=== PATIENT | female | born 1975 | race Caucasian/White ===

== ENCOUNTER 2020-06-05 11:39 | Emergency (ER) | payer OTHER, SELFPAY ==
--- NOTE | ~2020-06-05 | CT_ITS ---
EXAMINATION: CT chest abdomen pelvis w con DATE: 06/05/2020 15:47 INDICATION: Chest pain. Abdominal pain. TECHNIQUE: Computed tomography (CT) of the chest, abdomen, and pelvis was performed with 100 mL Omnip aque 350 intravenous contrast. Automated exposure control and iterative reconstruction technique were employed. The dose-length product was 812.22 mGy-cm. COMPARISON: None FINDINGS: CHEST CT: The lungs demonstrate mild atelectasis. No pleural effusion. The heart size is normal. No pericardial effusion. There is mild thoracic spondylosis. ABDOMEN/PELVIS CT: The liver, gallbladder, spleen, pancreas, adrenal glands, and kidneys are normal. The left prong of t he intrauterine device pierces the myometrium. There are no dilated loops of bowel. The appendix is n ormal. There are no pathologically enlarged lymph nodes. There is no free intraperitoneal fluid. Ther e is mild lumbar spondylosis. IMPRESSION: 1. Abnormal positioning of the uterine device. The left prong of the intrauterine device pierces the myometrium. Reviewed, dictated and finalized at location B. IMPRESSION: 1. Abnormal positioning of the uterine device. The left prong of the intrauteri ne device pierces the myometrium.
--- NOTE | ~2020-06-05 | XR_ITS ---
EXAMINATION: XR chest 1V portable DATE: 06/05/2020 12:17 INDICATION: Central chest pain TECHNIQUE: frontal view of the chest was obtained. COMPARISON: None FINDINGS: The lungs are clear with no focal airspace opacities, pulmonary edema, pleural effusion or pneumothor ax. The cardiomediastinal silhouette is normal. Visualized bones and soft tissues are unremarkable. IMPRESSION: 1. Normal chest radiograph. Reviewed, dictated and finalized at location A. IMPRESSION: 1. Normal chest radiograph.
[2020-06-05 11:45] VITALS: PULSE 88
[2020-06-05 11:47] VITALS: BP 144/94; PULSE 96; RESP 20; TEMP 36.6; O2SAT 99
--- NOTE | 2020-06-05 11:47 | ECG_ITS ---
Measurements Intervals [place] Rate: 90 P: 29 NV: 135 QRS: 29 QRSD: 90 T: 35 QT: 338 QTc: 415 Interpretive Statements SINUS RHYTHM BASELINE ARTIFACT- I, II, III, AVR, AVL, AVF, V1-V6 NORMAL ECG Electronically Signed On 06-05-2020 13:13:22 CDT by Jos Mcdonald D.O.
[2020-06-05 12:12] LABS: Basophils Absolute Auto 0.1 K/mm3 (0.0-0.1); Basophils Percent Auto 0.7 % (0.2-1.2); Eosinophils Absolute Auto 0.3 K/mm3 (0-0.3); Eosinophils Percent Auto 3.4 % (0-4.4); Hematocrit 41.4 % (37.0-47.0); Immature Granulocyte Absolute 0.09 K/mm3 (0.00-0.031); Immature Granulocyte Percent A 1.1 % (0-0.5); Lymphocytes Absolute Auto 2.21 K/mm3 (0.9-3.2); Lymphocytes Percent Auto 26.6 % (18.3-44.2); Mean Corpuscular HGB Conc 33.8 g/dl (32-36); Mean Corpuscular Volume 85.7 fl (80-100); Mean Platelet Volume 9.3 fl (7.4-10.4); Monocytes Absolute Auto 0.6 K/mm3 (0.1-0.6); Monocytes Percent Auto 7.6 % (2.6-8.5); Neutrophils Percent Auto 60.6 % (45.5-73.1); Platelet Count Result 271 k/mm3 (150-375); Red Blood Count 4.83 M/mm3 (4.2-5.4); Red Cell Distribution Width 14.3 % (11.5-14.5); White Blood Count 8.3 K/mm3 (4.5-10.0)
--- NOTE | 2020-06-05 12:13 | ED.CHESTPAIN ---
HPI - Chest Pain General Chief Complaint: Chest Pain Stated Complaint: Chest Pain Time Seen by Provider: 06/05/20 12:13 Source: patient Mode of arrival: EMS Limitations: no limitations History of Present Illness HPI narrative: Patient is a 45-year-old female who presents for evaluation of chest pain. 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 Pain was acute, sudden in nature located in the center of her chest and epigastrium. Associated with mild shortness of breath and nausea. No vomiting. No diaphoresis. No radiation of the pain to the jaw, neck, back, or flanks. Patient currently endorses nausea despite being given Zofran and morphine in route by EMS. She is a non-smoker. No history of drug use. No history of heart attack or coronary artery disease. No recent travel or history of Covid. No recent illnesses. Related Data Allergies Allergy/AdvReac Type Severity Reaction Status Date / Time vancomycin Allergy Unknown RASH Verified 01/16/17 04:41 Review of Systems Review of Systems: Narrative: CONSTITUTIONAL: Denies fever, chills, or sweats. EYES: Denies visual changes, redness, or discharge. ENT: Denies rhinorrhea, congestion, sore throat, or otalgia. CARDIOVASCULAR: Reports chest pain, denies palpitations or edema RESPIRATORY: Denies cough or dyspnea. GASTROINTESTINAL: Reports epigastric pain, nausea without vomiting or diarrhea GENITOURINARY: Denies dysuria or hematuria. SKIN: Denies rash or itching. MUSCULOSKELETAL: Denies back pain, joint pain, or myalgia. NEUROLOGIC: Denies headache, numbness, or weakness. [facility] Social History Social History (Updated 06/05/20 @ 12:49 by Hilary Valdez MD) Smoking status: Never smoker Alcohol intake: current Alcohol use details: Social Substance use: never Living arrangements: with family Occupation/Education: occupation Additional occupation/education comments: Teacher Gender identity (if verbalized by the patient): Female Exam Narrative: Exam Narrative: GENERAL: Awake, alert, conversant, tearful HEAD: Normocephalic, atraumatic. EYES: PERRLA and EOMI. ENT: Nares clear, no rhinorrhea or epistaxis. Mucous membranes moist. NECK: Supple. CHEST: No respiratory distress, breathing even and non labored, mild reproducible chest wall pain HEART: Regular rate, sinus rhythm ABDOMEN:Non distended, mild epigastric tenderness, no right upper quadrant tenderness EXTREMITIES: Normal range of motion. No edema. SKIN: Warm, dry, no rash. NEURO:No focal deficits. Alert and oriented x3 Course Vital Signs Vital signs: Vital Signs Pulse Rate 88 06/05/20 11:45 Temperature 36.6 C 06/05/20 11:47 Pulse Rate 70 06/05/20 17:19 Respiratory Rate 16 06/05/20 17:19 Blood Pressure 141/91 H 06/05/20 17:19 Pulse Oximetry 98 06/05/20 17:19 MDM - Chest Pain MDM Narrative Medical decision making narrative: Patient presented for evaluation of chest pain and epigastric pain. The time of assessment, ABCs are intact and vital signs are stable. Exam notable for chest wall tenderness as well as epigastric tenderness which reproduces pain. No EKG changes compared to initial EKG and second EKG when patient arrives. Patient's EKG and labs are without significant high risk changes. Cardiac risk factors reviewed. Patient is felt low risk for ACS and reasonable for further risk stratification testing as an outpatient. Heart score of 4. No elevation in troponins. No evidence of acute pathology on CT chest, abdomen or pelvis. SHe does have an IUD which has migrated and will require OBGYN follow up. No evidence of cholecystitis or pancreatitis. Tried a GI cocktail with pain medication with only slight improvement in her symptoms. Patient still is endorsing a strange type of chest pain but it really does not seem anginal in nature. No other signs or symptoms to suggest aortic dissection. A low risk well's criteria i
[2020-06-05 12:26] LABS: INR 0.9; Prothrombin Time 12.8 Seconds (11.1-14.7)
[2020-06-05 12:27] LABS: Partial Thromboplastin Time 25.2 SECONDS (22.3-36.8)
[2020-06-05 12:32] LABS: Anion Gap 9 mmol/L (8-16); Blood Urea Nitrogen 15 mg/dL (7-17); Carbon Dioxide 21 mmol/L (22-30); Chloride 110 mmol/L (98-107); Estimated CRCL calculation 80 ml/min; Estimated Glomerular Filt Rate > 60; Glucose 117 mg/dL (65-105); Potassium 3.7 mmol/L (3.4-5.0); Sodium 140 mmol/L (137-145)
[2020-06-05 12:44] LABS: Troponin I < 0.012 ng/mL (0.000-0.034)
--- NOTE | 2020-06-05 12:53 | PC.NURSE ---
Called lab, Myriam, added on D Dimer. Hepatic, and Lipase [id number]
[2020-06-05 13:02] LABS: Alanine Aminotransferase 25 U/L (4-35); Albumin Level 4.5 g/dL (3.5-5.1); Alkaline Phosphatase 69 U/L (38-126); Aspartate Amino Transferase 30 U/L (14-36); Bilirubin,Total 0.3 mg/dL (0.2-1.3); Lipase 102 U/L (23-300)
[2020-06-05] MEDS: SODIUM CHLORIDE 0.9% IV 1,000 ML 999 ML IV CONT (13:07)
[2020-06-05 13:08] LABS: D Dimer 0.27 ug/mL (<0.48)
[2020-06-05] MEDS: ONDANSETRON INJ 4 MG/2 ML VIAL IV PUSH (13:10)
[2020-06-05] MEDS: MORPHINE SULFATE (*CRX) 4 MG/ML INJ IV PUSH (13:10)
[2020-06-05 15:19] LABS: Troponin I < 0.012 ng/mL (0.000-0.034)
[2020-06-05] MEDS: BELLADONNA ALK/PHENOB ELIX 10 ML, MAG HYDROX/ALUMINUM HYD/SIMETH 30 ML, LIDOCAINE HCL 2... PO (16:39)
[2020-06-05] MEDS: DICYCLOMINE HCL INJ 20 MG/2 ML VIAL IM (16:43)
[2020-06-05 17:19] VITALS: BP 141/91; PULSE 70; RESP 16; O2SAT 98
== END 2020-06-05 18:09 | disposition home or self-care (01) ==
PROVIDERS: Emergency Provider Emergency Medicine; PCP Family Medicine
DX: R07.89 Other chest pain (principal); R10.13 Epigastric pain
CPT/HCPCS: 36415; 71045; 71260; 74177; 80048; 80076; 81025; 83690; 84484; 85025; 85380; 85610; 85730; 93005; 96361; 96372; 96374; 96375; 99284; A9270; J0500; J2270; J2405; J7030; Q9967

== ENCOUNTER 2023-01-28 18:01 | Emergency (ER) | payer OTHER, SELFPAY ==
[2023-01-28] VITALS (14 sets, daily range): BP systolic 100–135; BP diastolic 70–84; PULSE 84–97; RESP 16–17; TEMP 36.8–38.1; O2SAT 96–100
--- NOTE | ~2023-01-28 | CT_ITS ---
EXAMINATION: CT abdomen pelvis w con DATE: 01/28/2023 22:53 INDICATION: LLQ pain, fever TECHNIQUE: Computed tomography (CT) of the abdomen and pelvis was performed with 100 mL Omnipaque-350 intravenous contrast. Automated exposure control and iterative reconstruction technique were employe d. The dose-length product was 388.95 mGy-cm. COMPARISON: None. FINDINGS: Lower thorax: Unremarkable Liver: Normal. Biliary/Gallbladder: Gallbladder is normal. No bile duct dilation. Pancreas: No mass or duct dilation. Spleen: Normal. Adrenals:No mass. Kidneys: Patchy left lower pole enhancement. Punctate left mid and upper pole nonobstructing calculi. No suspicious mass. Mild bilateral ureterectasis and urothelial enhancement. GI tract: Mild distal esophageal and gastric wall edema. No small or large bowel dilation. Normal antonio endix. Mesentery/Peritoneum: No ascites, mass, or free air. Retroperitoneum: No mass. Pelvis: Normal urinary bladder. IUD. The left transverse limb of the IUD extends into the uterine par enchyma, with the tip possibly terminating just outside the serosa of the uterus. Soft Tissues: Soft tissues and body wall unremarkable. Bones: No acute osseous finding. IMPRESSION: Mild esophagitis/gastritis. Findings concerning for bilateral ascending infection and left pyelonephritis. Redemonstration of abnormal positioning of the IUD. The left transverse limb penetrates the myometriu m. Recommend gynecology referral and consider replacement. Reviewed, dictated and finalized at location K. GER BABY IMPRESSION: Mild esophagitis/gastritis. Findings concerning for bilateral ascending infection and left pyelonephritis. Redemonstration of abnormal positioning of the IUD. The left transverse limb pe netrates the myometrium. Recommend gynecology referral and consider replacement .
[2023-01-28] MEDS: ACETAMINOPHEN 500 MG TABLET 1000 MG PO (21:35)
[2023-01-28] MEDS: MORPHINE SULFATE (*CRX) 4 MG/ML INJ IV PUSH (21:36)
[2023-01-28] MEDS: SODIUM CHLORIDE 0.9% IV 1,000 ML 999 ML IV CONT ×2 (21:37→21:38)
[2023-01-28 21:47] LABS: Basophils Percent Auto 0.4 % (0.2-1.2); Eosinophils Percent Auto 0.4 % (0-4.4); Hematocrit 39.7 % (37.0-47.0); Immature Granulocyte Absolute 0.06 K/mm3 (0.00-0.031); Immature Granulocyte Percent A 0.5 % (0-0.5); Lymphocytes Absolute Auto 0.91 K/mm3 (0.9-3.2); Lymphocytes Percent Auto 8.1 % (18.3-44.2); Mean Corpuscular HGB Conc 32.7 g/dl (32-36); Mean Corpuscular Hemoglobin 31.3 pg (26-34); Mean Corpuscular Volume 95.7 fl (80-100); Mean Platelet Volume 9.2 fl (7.4-10.4); Monocytes Absolute Auto 0.9 K/mm3 (0.1-0.6); Monocytes Percent Auto 7.8 % (2.6-8.5); Neutrophils Absolute Auto 9.3 K/mm3 (1.3-6.7); Neutrophils Percent Auto 82.8 % (45.5-73.1); Platelet Count Result 243 k/mm3 (150-375); Red Blood Count 4.15 M/mm3 (4.2-5.4); Red Cell Distribution Width 12.7 % (11.5-14.5); White Blood Count 11.2 K/mm3 (4.5-10.0)
[2023-01-28 21:55] LABS: Lactic Acid Reflex 1.5 mmol/L (0.7-2.0)
[2023-01-28 21:56] LABS: Alanine Aminotransferase 196 U/L (6-35); Albumin Level 3.9 g/dL (3.5-5.1); Alkaline Phosphatase 116 U/L (38-126); Anion Gap 9 mmol/L (8-16); Aspartate Amino Transferase 113 U/L (14-36); Bilirubin,Total 0.6 mg/dL (0.2-1.3); Blood Urea Nitrogen 7 mg/dL (7-17); Calcium 9.5 mg/dL (8.4-10.2); Carbon Dioxide 24 mmol/L (22-30); Chloride 104 mmol/L (98-107); Estimated CRCL calculation 70 ml/min; Estimated Glomerular Filt Rate > 60; Glucose 162 mg/dL (65-110); Lipase 63 U/L (23-300); Potassium 3.8 mmol/L (3.4-5.0); Sodium 137 mmol/L (137-145)
[2023-01-28 22:04] LABS: INR 1.1; Prothrombin Time 14.3 Seconds (11.1-14.7)
[2023-01-28 22:06] LABS: Appearance Urine Clear (Clear); Bacteria Urine None Seen /hpf; Bilirubin Urine Negative (Negative); Blood Urine 1+ (Negative); Color Urine Yellow (Yellow); Glucose Urine UA Negative (Negative); Ketones Urine Negative (Negative); Leukocyte Esterase Ur Trace LEU/UL (Negative); Need Manual Microscopic Reviewed; Nitrate Urine Negative (Negative); Non Pathogenic Casts 0-2; Protein Urine Negative (Negative); RBC Urine 0-2 /hpf (0-2); Specific Grav Ur 1.001 (1.001-1.035); Squamous Epithelial Cell Urine None seen /hpf (Few); WBC Urine 0-5 /hpf
[2023-01-28 22:10] LABS: Add Urine Microscopic? YES
[2023-01-28 22:23] LABS: Influenza A QL RT-PCR Negative (Negative); Influenza B QL RT-PCR Negative (Negative); RSV RNA, RT-PCR Negative (Negative); SARS-CoV-2 RNA PCR Negative (Negative)
[2023-01-29] VITALS (8 sets, daily range): BP systolic 115–122; BP diastolic 68–74; O2SAT 95–97
--- NOTE | 2023-01-29 00:01 | ED.GENADULT ---
HPI - General Adult General Chief complaint: Abdominal Pain Stated complaint: lower left ab pain Time Seen by Provider: 01/28/23 21:07 History of Present Illness HPI narrative: Patient is a 39-year-old female who presents emerged from with chief complaint of left lower quadrant pain. Patient reports that she started having pain in the left lower quadrant several days ago reports that she spiked a temperature patient reports that she has had an episode of nausea vomiting major reports having generalized body aches with this patient denies diarrhea Related Data Allergies Allergy/AdvReac Type Severity Reaction Status Date / Time vancomycin Allergy Unknown RASH Verified 01/16/17 04:41 Review of Systems Review of Systems: A 10 system review of systems was completed on the patient and is negative except for what is stated in the HPI. Nursing and ancillary documentation was reviewed. [facility] Social History Social History Smoking status: Never smoker Alcohol intake: current Alcohol use details: Social Substance use: never Living arrangements: with family Occupation/Education: occupation Additional occupation/education comments: Teacher Gender identity (if verbalized by the patient): Female Exam Narrative: GENERAL: Well-appearing, well-nourished, and in no acute distress. HEAD: Normocephalic, atraumatic. EYES: PERRLA and EOMI. ENT: Nares clear, no rhinorrhea or epistaxis. Mucous membranes moist. NECK: Supple. CHEST: Clear to auscultation. No respiratory distress. HEART: Regular rate and rhythm. No murmur heard. Normal peripheral pulses. ABDOMEN: Soft, tenderness to palpation left lower quadrant, nondistended, normal active bowel sounds. EXTREMITIES: Normal range of motion. No edema. SKIN: Warm, dry, no rash. NEURO: No focal deficits. Alert and oriented x3. PSYCH: Normal mood and affect. Course Vital Signs Vital signs: Vital Signs Temperature 37.7 C H 01/28/23 18:03 Pulse Rate 97 01/28/23 18:03 Respiratory Rate 16 01/28/23 18:03 Blood Pressure 135/83 01/28/23 18:03 Pulse Oximetry 100 01/28/23 18:03 Temperature 36.8 C 01/28/23 23:30 Pulse Rate 84 01/28/23 20:16 Respiratory Rate 17 01/28/23 20:16 Blood Pressure 100/70 01/28/23 22:31 Pulse Oximetry 96 01/28/23 23:30 Medical Decision Making MDM Narrative Medical decision making narrative: differential diagnosis includes pyelonephritis, diverticulitis, colitis, UTI, laboratory studies were obtained on the patient which showed a white count 11.2 electrolytes show normal bilirubin slightly elevated liver enzymes urinalysis showed trace leukocyte esterase flu RSV and COVID were negative CT scan of the abdomen pelvis showed mild esophagitis concerns for bilateral ascending infection and left pyelonephritis patient also has an IUD that appears in abnormal position it is similar to previous CT scans. Vital Signs Vital Signs: Vital Signs Temperature 37.7 C H 01/28/23 18:03 Pulse Rate 97 01/28/23 18:03 Respiratory Rate 16 01/28/23 18:03 Blood Pressure 135/83 01/28/23 18:03 Pulse Oximetry 100 01/28/23 18:03 Temperature 36.8 C 01/28/23 23:30 Pulse Rate 84 01/28/23 20:16 Respiratory Rate 17 01/28/23 20:16 Blood Pressure 100/70 01/28/23 22:31 Pulse Oximetry 96 01/28/23 23:30 Lab Data 01/28/23 21:39 01/28/23 21:39 Labs: Lab Results 01/28/23 01/28/23 Range/Units 21:38 21:39 WBC 11.2 H (4.5-10.0) K/mm3 RBC 4.15 L (4.2-5.4) M/mm3 Hgb 13.0 (12.0-15.0) g/dL Hct 39.7 (37.0-47.0) % MCV 95.7 (80-100) fl MCH 31.3 (26-34) pg MCHC 32.7 (32-36) g/dl RDW 12.7 (11.5-14.5) % Plt Count 243 (150-375) k/mm3 MPV 9.2 (7.4-10.4) fl Immature Gran % (Auto) 0.5 (0-0.5) % Neut % (Auto) 82.8 H (45.5-73.1) % Lymph % (Auto) 8.1 L (
== END 2023-01-29 01:48 | disposition home or self-care (01) ==
PROVIDERS: Emergency Provider Emergency Medicine; PCP Family Medicine
DX: N12 Tubulo-interstitial nephritis, not specified as acute or chronic (principal); Z20.822 Contact with and (suspected) exposure to COVID-19; K20.90 Esophagitis, unspecified without bleeding; K29.70 Gastritis, unspecified, without bleeding; T83.32XA Displacement of intrauterine contraceptive device, initial encounter; Y84.8 Other medical procedures as the cause of abnormal reaction of the patient, or of later complication, without mention of misadventure at the time of the procedure
CPT/HCPCS: 36415; 74177; 80053; 81001; 81025; 83605; 83690; 85025; 85610; 85730; 87637; 96361; 96365; 96374; 99284; A9270; J0696; J2270; J7030; Q9967